=== PATIENT | female | born 1990 | race Hispanic/Latino ===

== ENCOUNTER 2019-01-26 02:15 | Day surgery (SDC) | payer OTHER, SELFPAY ==
[2019-01-26 02:38] VITALS: BP 119/62; TEMP 99.3; BMI 36.6
[2019-01-26] MEDS ORDERED: Lidocaine 2% Viscous Solution 10 ML, Aluminum & Magnesium Hydroxide 30 ML SSW SCH (03:15)
--- NOTE | 2019-01-26 03:18 | PDOC.LDHP ---
Labor and Delivery H&P Chief complaint: abdominal pain HPI: 28 y/o at 26w6d, patient of Dr. Sherwood, presents with epigastric/RUQ pain since yesterday. Pain is constant but has intermittent sharp/more intense episodes. Worse with change in position and after eating. Denies VB, LOF, ctx , or decreased FM. ROS neg for HEENT, CV, pulm, GI, , neuro, psych, skin, musculoskeletal, or constitutional symptoms other than mentioned above. OB History Details: 4 prior SABs Current complications: none Current medications: pre- vitamins, other (progesterone, baby ASA) Previous surgical history: none Allergies/Adverse Reactions: Allergies Allergy/AdvReac Type Severity Reaction Status Date / Time No Known Allergies Allergy Verified 01/26/19 02:38 Social history: none - Physical Exam Vital signs reviewed and normal: yes General: NAD, resting Lungs: nonlabored breathing Abdomen: gravid (soft, tender to palpation in upper/RUQ; batista's +) FHT: category 1 (150s mod variability, + 10x10, occ variable decel) [place] contractions every: none - Assessment 28 y/o at 26w6d with cholelithiasis. status reassuring on NST. - Plan -: D/c home with precautions. Advised to avoid fatty diet. Follow up with Dr. Sherwood for further management and surgical referral. Given Tylenol #3, dispense 10 tabs, no refills.
[2019-01-26 03:37] LABS: #Eosinphils 0.1 thou/uL (0.0-0.7); #Lymphocytes 2.2 thou/uL (1.20-3.40); #Monocytes 1.4 thou/uL (0.11-0.59); #Neutrophils 11.6 thou/uL (1.40-6.50); %Basophils 0.3 % (0.0-1.0); %Eosinophils 0.6 % (0.0-10.0); %Lymphocytes 14.3 % (21.0-51.0); %Monocytes 8.9 % (0.0-10.0); Hemoglobin 11.6 g/dL (12.0-16.0); Mean Corpuscular HGB CONC 33.9 g/dL (32.0-36.0); Mean Corpuscular Volume 91.5 fL (78.0-98.0); Mean Platelet Volume 6.6 fL (7.4-10.4); Platelet Count 275 thou/uL (130-400); RBC Distribution Width 12.6 % (11.5-14.5); Red Blood Cell (RBC) Count 3.74 mill/uL (4.20-5.40); White Blood Cell (WBC) Count 15.3 thou/uL (4.8-10.8)
[2019-01-26 04:06] LABS: ALT (SGPT) 17 U/L (8-55); AST (SGOT) 12 U/L (5-34); Albumin 3.3 g/dL (3.5-5.0); Alkaline Phosphatase 87 U/L (40-150); Anion Gap 11 mmol/L (10-20); BUN (Urea Nitrogen) 7 mg/dL (7.0-18.7); Bilirubin, Total 0.2 mg/dL (0.2-1.2); Calc. Creatinine Clearance 173 mL/min (70-130); Calcium 8.9 mg/dL (7.8-10.44); Carbon Dioxide 25 mmol/L (22-29); Chloride 105 mmol/L (98-107); Estimated GFR-MDRD Greater than 90; Globulin 3.7 g/dL (2.4-3.5); Glucose 106 mg/dL (70-105); Potassium 3.9 mmol/L (3.5-5.1); Sodium 137 mmol/L (136-145)
--- NOTE | 2019-01-26 08:55 | ULT ---
PRELIMINARY REPORT/[facility]/EMERGENTY AFTER-HOURS PROCEDURE US Abdomen Complete EXAM DATE/TIME: 01/26/2019 3:24 AM CLINICAL HISTORY: 28 years old, female; Abdominal pain; Epigastric; ; Patient HX: Ruq pain in 3rd trimester pre gnancy TECHNIQUE: Imaging protocol: Real-time ultrasound of the abdomen with image documentation. COMPARISON: No relevant prior studies available. FINDINGS: Liver: No mass. Gallbladder: Multiple gallstones. There is gallbladder wall thickening at 7 mm. Common bile duct: Normal. 3 mm. No stones. No dilation. Pancreas: Visualized pancreas is unremarkable. Right kidney: No mass. No hydronephrosis. Left kidney: No mass. No hydronephrosis. Spleen: Mild splenomegaly at 13.2 cm. Aorta: No aneurysm. Inferior vena cava: Normal. IMPRESSION: Gallstones with wall thickening. Findings consistent with cholecystitis in the appropriate clinical s etting. Mild splenomegaly at 13.2 cm. Thank you for allowing us to participate in the care of your patient. Dictated and Authenticated by: Kings Alavrenga MD 01/26/2019 4:06 AM Central Time ([place] & [place]) FINAL REPORT SONOGRAM ABDOMEN COMPLETE: Date: 01-26-19 Performed on emergency basis at 0326 hours. History: Upper abdomen pain. FINDINGS: I agree with the preliminary report by Dr. Alvarenga from [facility]. Cholelithiasis with gallb ladder wall thickening. Clinical correlation regarding other signs and symptoms of acute cholecystiti s is required. Mild splenomegaly. Code QA POS: TPC
== END 2019-01-26 04:35 | disposition home health service (06) ==
LOC: L&D/OP 02:15
PROVIDERS: ATTEND Family Medicine
DX: O99.612 Diseases of the digestive system complicating pregnancy, second trimester (principal); K80.20 Calculus of gallbladder without cholecystitis without obstruction; Z3A.26 26 weeks gestation of pregnancy; Z79.82 Long term (current) use of aspirin; Z79.899 Other long term (current) drug therapy
CPT/HCPCS: 36415; 76700; 80053; 85025; 99283

== ENCOUNTER 2019-04-25 15:31 | Inpatient (IN) | payer MEDICAID, OTHER, SELFPAY ==
[2019-04-25] MEDS ORDERED: Butorphanol Tartrate 1 MG/ML VIAL SLOW IVP PRN (19:15)
[2019-04-25] MEDS ORDERED: Carboprost 250 MCG/ML AMP IM PRN (19:15)
[2019-04-25] MEDS ORDERED: Diphenoxylate HCl/Atropine Tablet PO PRN (19:15)
[2019-04-25] MEDS ORDERED: Penicillin G Potassium 5 MILL.UNITS in Sodium Chloride 0.9% 100 ML IVPB SCH (19:15)
[2019-04-25] MEDS ORDERED: Lidocaine 1% (PF) 30 ML VIAL SC PRN (19:15)
[2019-04-25] MEDS ORDERED: Ibuprofen 800 MG TAB PO PRN (19:15)
[2019-04-25] MEDS ORDERED: Ondansetron PF 4 MG/2 ML Vial IVP PRN (19:15)
[2019-04-25] MEDS ORDERED: Promethazine HCl 25 MG/ML VIAL IM PRN (19:15)
[2019-04-25] MEDS ORDERED: NS w/ Oxytocin 10 units 500 ML IV SCH ×2 (19:15)
[2019-04-25] MEDS ORDERED: hydrALAZINE 20 MG/ML VIAL SLOW IVP PRN (19:15)
[2019-04-25] MEDS ORDERED: Misoprostol 200 MCG TAB PR PRN (19:15)
[2019-04-25] MEDS ORDERED: NS / Oxytocin 40 units/1000ml 1,000 ML IV PRN (19:15)
[2019-04-25] MEDS ORDERED: HYDROcodone/Acetaminophen 5/325 mg Tablet PO PRN (19:15)
[2019-04-25] MEDS ORDERED: Methylergonovine 0.2 MG/ML VIAL IM PRN (19:15)
[2019-04-25 20:03] VITALS: BMI 45.1
[2019-04-25] MEDS: Lactated Ringer's 1,000 ML IV SCH (20:50)
[2019-04-25 20:57] LABS: Mean Corpuscular HGB CONC 35.5 g/dL (32.0-36.0); Mean Corpuscular Hemoglobin 31.4 pg (27.0-31.0); Mean Corpuscular Volume 88.4 fL (78.0-98.0); Mean Platelet Volume 7.8 fL (7.4-10.4); Platelet Count 260 thou/uL (130-400); RBC Distribution Width 14.3 % (11.5-14.5); Red Blood Cell (RBC) Count 3.82 mill/uL (4.20-5.40); White Blood Cell (WBC) Count 10.7 thou/uL (4.8-10.8)
[2019-04-25] MEDS: Misoprostol 100 MCG TAB PO SCH (20:57)
[2019-04-25 21:37] LABS: Syphilis Antibody Nonreactive (Nonreactive); Syphilis Antibody Index 0.09 S/CO (<1.00 Non-Reactive)
[2019-04-26] MEDS: Penicillin G 2.5 MILL.units 2.5 MILL.UNITS in Premix Bag 1 BAG IVPB SCH ×4 (00:56→12:28)
[2019-04-26 01:30] LABS: HBSAg Index 0.27 S/CO (0-0.99); Hep B Surf Ag Non-Reactive S/CO (NonReactive)
[2019-04-26] MEDS: Misoprostol 100 MCG TAB PO SCH ×3 (02:34→14:18)
[2019-04-26] MEDS: Lactated Ringer's 1,000 ML IV SCH ×2 (06:24→20:30)
[2019-04-26] MEDS ORDERED: Lidocaine 1.5%/Epinephrine 1:200,000 5 ML AMPUL IJ ONE (07:56)
[2019-04-26] MEDS ORDERED: Fentanyl 4 mcg/Bup 0.1% Cadd 100 ML ONE (07:56)
[2019-04-26] MEDS ORDERED: Ondansetron PF 4 MG/2 ML Vial IVP PRN ×2 (08:49→14:09)
[2019-04-26] MEDS ORDERED: Naloxone HCl 0.4 mg/ml Vial IVP PRN ×2 (08:49)
[2019-04-26] MEDS ORDERED: Promethazine HCl 25 MG/ML VIAL IM PRN (08:49)
[2019-04-26] MEDS ORDERED: Lactated Ringer's 500 ML IV PRN (08:49)
[2019-04-26] MEDS ORDERED: ePHEDrine/0.9% NaCl/PF SYRINGE 50 mg/10 ml SLOW IVP PRN (08:49)
[2019-04-26] MEDS ORDERED: Acetaminophen 325 MG TAB PO PRN (08:49)
[2019-04-26] MEDS ORDERED: diphenhydrAMINE 50 MG/ML VIAL IVP PRN (08:49)
[2019-04-26] MEDS ORDERED: Communication Order-Pharmacy FS SCH (09:00)
[2019-04-26] MEDS ORDERED: Fentanyl 4 mcg/Bupivacaine 0.1% Cassette 100 ML EPIDURAL SCH (09:00)
[2019-04-26] MEDS ORDERED: Preparation H Ointment 28 GM TUBE PR PRN (14:09)
[2019-04-26] MEDS ORDERED: Milk Of Magnesia 30 ML UDCUP PO PRN (14:09)
[2019-04-26] MEDS ORDERED: Adacel (T-DAP) 0.5 ML SYRINGE IM ONE (14:09)
[2019-04-26] MEDS ORDERED: diphenhydrAMINE 25 MG CAP PO PRN (14:09)
[2019-04-26] MEDS ORDERED: Benzocaine-Menthol 82.5 ML CAN TOP PRN (14:09)
[2019-04-26] MEDS ORDERED: Lanolin Ointment 7 GM TUBE TOP PRN (14:09)
[2019-04-26] MEDS ORDERED: NS / Oxytocin 40 units/1000ml 1,000 ML IV SCH (14:09)
[2019-04-26] MEDS ORDERED: HYDROcodone/Acetaminophen 5/325 mg Tablet PO PRN (14:09)
[2019-04-26] MEDS ORDERED: hydrALAZINE 20 MG/ML VIAL SLOW IVP PRN (14:09)
[2019-04-26] MEDS ORDERED: Bisacodyl 10 MG SUPP PR PRN (14:09)
[2019-04-26] MEDS ORDERED: NS / Oxytocin 40 units/1000ml 1,000 ML ONE (14:14)
[2019-04-26] MEDS: Ferrous Sulfate 325 MG TAB PO SCH (17:32)
[2019-04-26] MEDS: Ibuprofen 800 MG TAB PO SCH ×2 (17:32→21:31)
[2019-04-26] MEDS: Docusate Calcium (SURFAK) 240 MG CAP PO SCH (21:31)
[2019-04-27 04:53] LABS: Mean Corpuscular HGB CONC 35.2 g/dL (32.0-36.0); Mean Corpuscular Hemoglobin 31.3 pg (27.0-31.0); Mean Corpuscular Volume 88.9 fL (78.0-98.0); Mean Platelet Volume 7.5 fL (7.4-10.4); Platelet Count 194 thou/uL (130-400); RBC Distribution Width 14.3 % (11.5-14.5); Red Blood Cell (RBC) Count 3.18 mill/uL (4.20-5.40); White Blood Cell (WBC) Count 10.9 thou/uL (4.8-10.8)
[2019-04-27] MEDS: Ibuprofen 800 MG TAB PO SCH ×3 (05:25→21:29)
[2019-04-27] MEDS: Prenatal Vitamin 1 TAB PO SCH (08:38)
[2019-04-27] MEDS: Docusate Calcium (SURFAK) 240 MG CAP PO SCH ×2 (08:38→21:29)
[2019-04-27] MEDS: Ferrous Sulfate 325 MG TAB PO SCH ×2 (08:39→17:10)
[2019-04-27] MEDS: HYDROcodone/Acetaminophen 5/325 mg Tablet PO PRN ×3 (08:45→22:07)
[2019-04-28] MEDS: Ibuprofen 800 MG TAB PO SCH (05:26)
[2019-04-28 08:33] VITALS: BP 123/67; TEMP 98.4
[2019-04-28] MEDS: Ferrous Sulfate 325 MG TAB PO SCH (09:32)
[2019-04-28] MEDS: Prenatal Vitamin 1 TAB PO SCH (09:33)
[2019-04-28] MEDS: Docusate Calcium (SURFAK) 240 MG CAP PO SCH (09:33)
== END 2019-04-28 10:15 | disposition home or self-care (01) | DRG 807 ==
LOC: L&D 19:10 → 3SW 04-26 16:35 → EDSTATUS 04-28 15:30
PROVIDERS: ADMIT Family Medicine; ATTEND Family Medicine
PROC: 10E0XZZ Delivery of Products of Conception, External Approach (ICD-10-PCS; principal; 2019-04-26)
PROC: 10907ZC Drainage of Amniotic Fluid, Therapeutic from Products of Conception, Via Natural or Artificial Opening (ICD-10-PCS; 2019-04-26)
PROC: 0KQM0ZZ Repair Perineum Muscle, Open Approach (ICD-10-PCS; 2019-04-26)
PROC: 3E033VJ Introduction of Other Hormone into Peripheral Vein, Percutaneous Approach (ICD-10-PCS; 2019-04-26)
PROC: 10H07YZ Insertion of Other Device into Products of Conception, Via Natural or Artificial Opening (ICD-10-PCS; 2019-04-26)
PROC: 3E0P7VZ Introduction of Hormone into Female Reproductive, Via Natural or Artificial Opening (ICD-10-PCS; 2019-04-26)
DX: O99.214 Obesity complicating childbirth (principal); Z37.0 Single live birth; E66.9 Obesity, unspecified; O99.824 Streptococcus B carrier state complicating childbirth; O70.1 Second degree perineal laceration during delivery; Z3A.39 39 weeks gestation of pregnancy
CPT/HCPCS: 36415; 51702; 85027; 86780; 86850; 86900; 86901; 87340; 90715; J2001; J2405; J2540; J2590; J3490

== ENCOUNTER 2020-10-30 21:06 | Inpatient (IN) | payer BC ==
--- NOTE | 2020-10-30 22:05 | ULT ---
GALLBLADDER ULTRASOUND: HISTORY: Right upper quadrant abdominal pain FINDINGS: The liver demonstrates homogeneous echotexture without focal mass or intrahepatic biliary ductal dila tation. The gallbladder is full of shadowing calculi with wall thickening measuring about 6 mm. No pericholec ystic fluid is seen. A positive Wolfe's sign was reported by the computer systems architect. The right kidney and visualized portions of the pancreas are normal. The common duct [id number] in diameter. No free fluid is seen in the Caraballo's pouch. IMPRESSION: Cholelithiasis with gallbladder wall thickening and sonographically positive Wolfe's sig n. There is clinical concern for acute cholecystitis, further evaluation with HIDA scan would be helpful
[2020-10-30] MEDS ORDERED: Morphine 4 MG/ML VIAL ONE (22:37)
[2020-10-30] MEDS ORDERED: Piperacillin/Tazobactam 4.5 GM VIAL ONE (22:37)
[2020-10-30 23:49] VITALS: BMI 34.9
[2020-10-31] MEDS ORDERED: cefOXitin 2 GM in Sodium Chloride 0.9% 100 ML IVPB SCH (07:30)
[2020-10-31 08:09] LABS: SARS-CoV-2 PCR by NAA DETECTED (NotDetected)
--- NOTE | 2020-10-31 08:28 | HP ---
CHIEF COMPLAINT: Right upper quadrant abdominal pain. HISTORY OF PRESENT ILLNESS: The patient is a 29-year-old female with a 1-week history of right upper quadrant pain, radiating to back, associated with nausea. No fever. Ultrasound showed cholelithiasis. PAST MEDICAL HISTORY: Obesity. PAST SURGICAL HISTORY: None. MEDICATIONS: Advil. ALLERGIES: NO KNOWN DRUG ALLERGIES. SOCIAL HISTORY: She is . She works in a warehouse. No tobacco or alcohol. FAMILY HISTORY: Hypertension and diabetes. PHYSICAL EXAMINATION: VITAL SIGNS: Temperature 98, pulse 95, blood pressure 119/75. GENERAL: A morbidly obese female, in no apparent distress. HEENT: No jaundice. LUNGS: Clear. HEART: Regular rate and rhythm. ABDOMEN: Soft, tender in the right upper quadrant. EXTREMITIES: Unremarkable. LABORATORY DATA: White count 11.8, hemoglobin and hematocrit 13 and 40, and platelet count 424. Electrolytes; elevated glucose at 126. LFTs normal except for a mildly elevated alkaline phosphatase at 100. HCG negative. COVID screen test pending. Ultrasound shows thickened gallbladder wall, multiple cholelithiasis. ASSESSMENT: Acute cholecystitis. PLAN: Laparoscopic cholecystectomy. CONSENT: I have discussed planned procedure as well as risk of bleeding, infection, injury to bile duct, injury to bowel, need to open. She understands and gives informed consent. Job ID: [id number]
[2020-10-31 12:05] VITALS: BP 115/77; TEMP 98.8
--- NOTE | 2020-10-31 12:07 | PRG ---
DATE OF SERVICE: 10/31/2020 The patient has decided that she does not want to have surgery. She is afraid. I tried to explain to her that her gallbladder had evidence of acute cholecystitis that she has taken a chance of waiting to have it done that she could get much sicker that she is doing well now, but this can change. She says she understands, but does not want to have the surgery. She wants to go home, so I asked her to see me in the office in a week or two, but come back to ER if it gets worse. Job ID: [id number]
--- NOTE | 2020-11-01 08:41 | DIS ---
DATE OF ADMISSION: 10/30/2020 DATE OF DISCHARGE: 10/31/2020 DISCHARGE DIAGNOSES: Acute cholecystitis, COVID-19 infection. PROCEDURES DURING ADMISSION: None. HOSPITAL COURSE: The patient was admitted, put on bowel rest, given antibiotics, was scheduled for surgery. She decided that she did not want to have surgery. Her father from being intubated after COVID and was afraid of that. She said she felt fine and wants to go home. She was counseled as to the risk of the gallstones and possible infection, but she said she needs to leave, so she was discharged home. She will follow up with me in 2 weeks or earlier if things get worse. Job ID: [id number]
== END 2020-10-31 15:21 | disposition home or self-care (01) | DRG 444 ==
LOC: ERS 21:06 → ONC 22:38 → T4-A 10-31 10:49
PROVIDERS: ADMIT Surgery; ATTEND Surgery
DX: K81.0 Acute cholecystitis (principal); U07.1 COVID-19; E66.9 Obesity, unspecified; Z79.899 Other long term (current) drug therapy; Z68.35 Body mass index [BMI] 35.0-35.9, adult
CPT/HCPCS: 76705; 87635; 96365; J2270; J2543; U0003; U0005